=== PATIENT | female | born 1965 | race Two or more races ===

== ENCOUNTER 2021-03-13 14:31 | Emergency (ER) | payer OTHER ==
[~2021-03-13] VITALS: Ht 134.6 cm; Wt 41.7 kg
[2021-03-13] MEDS ORDERED: MULTI VITAMIN1 EACH PO (14:57)
== END 2021-03-13 18:24 | disposition home or self-care (01) ==
LOC: ER 14:31
DX: M25.512 Pain in left shoulder (principal)